=== PATIENT | female | born 1950 | race Caucasian/White ===

== ENCOUNTER 2016-08-15 09:26 | Emergency (ER) | payer MEDICARE ==
[~2016-08-15] VITALS: Ht 167.6 cm; Wt 83.0 kg
[~2016-08-15 09:26] MED LIST: ASPI-482 PO; EZET10TA3 PO; GLIM4TAB2 PO; LEVO112T2 PO; METF500T4 PO; OLME1TAB5 PO
[2016-08-15] MEDS ORDERED: IV NORMAL SALINE 500ML BAG 500 ML IV ONE (10:00)
[2016-08-15 10:15] LABS: BASO # 0.1 x10^3/uL (0.0-0.2); BASO % 1 % (0-3); EOS % 3 % (0-3); HEMOGLOBIN 14.4 g/dL (12.0-15.5); LYMPH # 2.5 x10^3/uL (1.0-4.8); LYMPH % 23 % (24-48); MEAN CORPUSCULAR HEMOGLOBIN 29 pg (25-35); MEAN CORPUSCULAR HGB CONC 34 g/dL (31-37); MEAN CORPUSCULAR VOLUME 88 fL (79-100); MONO % 5 % (0-9); NEUT % 68 % (31-73); PLATELET COUNT 264 x10^3/uL (140-400); RED BLOOD COUNT 4.92 x10^6/uL (3.50-5.40); RED CELL DISTRIBUTION WIDTH 14.4 % (11.5-14.5); WHITE BLOOD COUNT 10.6 x10^3/uL (4.0-11.0)
[2016-08-15] MEDS ORDERED: FENTANYL PF 100 MCG/2 ML VIAL. IV PRN (10:15)
[2016-08-15 10:18] LABS: CALCIUM 8.8 mg/dL (8.5-10.1); CREATININE 0.9 mg/dL (0.6-1.0); GFR 62.3; POTASSIUM 4.3 mmol/L (3.5-5.1)
[2016-08-15] MEDS ORDERED: IOHEXOL 300 MG/ML 75 ML VIAL IV ONE (10:30)
[2016-08-15] MEDS ORDERED: CONTRAST GIVEN MC PRN (10:30)
--- NOTE | 2016-08-15 11:28 | RAD ---
Indication submandibular pain. Swelling after tooth pulled. Contrast imaging through the neck was performed. 75 cc of Omnipaque 300 was administered. Images were reformatted in the coronal and sagittal planes. There is a lucency in the right lower mandible, at the expected level of an incisor tooth which would be compatible with an area of recent tooth extraction. Immediately adjacent, medial, to this finding is an additional lucency surrounding an incisor tooth compatible with a carious tooth (cavity). The visualized paranasal sinuses appear normal. The visualized brain appears unremarkable. Submandibular glands are seen and appear unremarkable. Evidence for a significant soft tissue inflammatory process is not seen. No underlying abscess is seen. Significant adenopathy in the neck is not seen. IMPRESSION: Lucency in the right mandible compatible with recent tooth extraction. Additional evidence for dental disease is seen. There is likely a carious tooth immediately adjacent to the extracted one. No significant soft tissue finding seen in the neck PQRS Compliance Statement: One or more of the following individualized dose reduction techniques were utilized for this examination: 1. Automated exposure control 2. Adjustment of the mA and/or kV according to patient size 3. Use of iterative reconstruction technique
[2016-08-15 11:53] VITALS: BP 173/88
[2016-08-15] MEDS ORDERED: PENI500T PO (11:53)
--- NOTE | 2016-08-15 11:54 | PHYS DOC ---
Past Medical History Past Medical History: Diabetes-Type II, Hypertension Past Surgical History: Appendectomy, Cholecystectomy, Hysterectomy Alcohol Use: Rarely Drug Use: None Adult General Chief Complaint Chief Complaint: OTHER COMPLAINTS HPI HPI Patient is a 66 year old female who presents with facial swelling. The patient states she had dental extraction on 07/24, now over past several days developing submandibular pain & swelling. She denies fevers/chills, nausea/ vomiting, difficulty swallowing, shortness of breath, tongue or lip swelling. Unsure if swelling/pain more severe than yesterday. No new dental complaints. She has not followed up with her dentist. She has history of DM & HTN. She takes losartan/HCTZ for HTN. PCP is DR. Kumar & her dentist is Dr. Benavides. Review of Systems Review of Systems Constitutional: Denies fever or chills HENT: Denies nasal congestion or sore throat, reports submandibular swelling. Respiratory: Denies cough or shortness of breath Cardiovascular: Denies chest pain GI: Denies abdominal pain, nausea, vomiting Musculoskeletal: Denies back pain or joint pain Integument: Denies rash Neurologic: Denies headache Current Medications Current Medications Current Medications Medications (Trade) Dose Ordered Sig/Bryson Start Time Stop Time Status Last Admin Dose Admin Fentanyl Citrate (Fentanyl 2ml Vial) 50 mcg PRN Q15MIN PRN 08/15/16 10:15 08/15/16 12:12 DC 08/15/16 10:19 50 MCG Info (Do NOT chart on this entry -- for MONITORING) 1 each PRN DAILY PRN 08/15/16 10:30 08/15/16 12:12 DC Iohexol (Omnipaque 300 Mg/ml) 75 ml 1X ONCE 08/15/16 10:30 08/15/16 10:31 DC 08/15/16 10:32 75 ML Sodium Chloride (Iv Sodium Chloride 0.9% 500ml Bag) 500 ml @ 0 mls/hr 1X ONCE 08/15/16 10:00 08/15/16 10:17 DC 08/15/16 10:16 999 MLS/HR Allergies Allergies Allergies Coded Allergies Type Severity Reaction Last Updated Verified No Known Drug Allergies 09/21/13 No Physical Exam Physical Exam Constitutional: Well developed, well nourished, no acute distress, non-toxic appearance. HENT: Normocephalic, atraumatic, bilateral external ears normal, oropharynx moist, nose normal. no tongue or lip swelling. there is slight swelling to submandibular region with associated mild tenderness, no masses or induration, no skin changes, beneath the tongue there is no swelling or tenderness, no dental abscess appreciated, recent extraction of right mandibular tooth, no trismus, posterior oropharynx no tonsillar enlargement or exudate, airway patent Eyes: conjunctiva normal, no discharge. Neck: supple, no stridor. Cardiovascular: RRR, no murmurs, no edema. Lungs & Thorax: LCTAB, no wheezing, no respiratory distress. Abdomen: nondistended. Skin: Warm, dry, no erythema, no rash. Extremities: No deformity Neurologic: Alert and oriented X 3 Current Patient Data Vital Signs Vital Signs Date Time Temp Pulse Resp B/P Pulse Ox O2 Delivery O2 Flow Rate FiO2 08/15/16 11:53 68 18 173/88 99 Room Air 08/15/16 09:40 98.0 98.0 Lab Values Laboratory Tests Test 08/15/16 09:55 White Blood Count 10.6x10^3/uL (4.0-11.0) Red Blood Count 4.92x10^6/uL (3.50-5.40) Hemoglobin 14.4g/dL (12.0-15.5) Hematocrit 43.0% (36.0-47.0) Mean Corpuscular Volume 88fL (79-100) Mean Corpuscular Hemoglobin 29pg (25-35) Mean Corpuscular Hemoglobin Concent 34g/dL (31-37) Red Cell Distribution Width 14.4% (11.5-14.5) Platelet Count 264x10^3/uL (140-400) Neutrophils (%) (Auto) 68% (31-73) Lymphocytes (%) (Auto) 23% (24-48) L Monocytes (%) (Auto) 5% (0-9) Eosinophils (%) (Auto) 3% (0-3) Basophils (%) (Auto) 1% (0-3) Neutrophils # (Auto) 7.3x10^3uL (1.8-7.7) Lymphocytes # (Auto) 2.5x10^3/uL (1.0-4.8) Monocytes # (Auto) 0.5x10^3/uL (0.0-1.1) Eosinophils # (Auto) 0.3x10^3/uL (0.0-0.7) Basophils # (Auto) 0.1x10^3/uL (0.0-0.2) Sodium Level 129mmol/L (136-145) L Potassium Level 4.3mmol/L (3.5-5.1) Chloride Level 93mmol/L (98-107) L Carbon Dioxide Level 28mmol/L (21-32) Anion Gap 8 (6-14) Blood Urea Nitrogen 7mg/dL (7-20) Creatinine 0.9mg/dL (0.6-1.0) Estimated GFR (Cockcroft-Gault) 62.3 Glucose Level 69mg/dL (70-99) L Calcium Level 8.8mg/dL (8.5-10.1) Laboratory Tests 08/15/16 09:55 Laboratory Tests 08/15/16 09:55 EKG EKG [] Radiology/Procedures Radiology/Procedures PROCEDURE: CT MAXILLOFACIAL W/CONTRAST Indication submandibular pain. Swelling after tooth pulled. Contrast imaging through the neck was performed. 75 cc of Omnipaque 300 was administered. Images were reformatted in the coronal and sagittal planes. There is a lucency in the right lower mandible, at the expected level of an incisor tooth which would be compatible with an area of recent tooth extraction. Immediately adjacent, medial, to this finding is an additional lucency surrounding an incisor tooth compatible with a carious tooth (cavity). The visualized paranasal sinuses appear normal. The visualized brain appears unremarkable. Submandibular glands are seen and appear unremarkable. Evidence for a significant soft tissue inflammatory process is not seen. No underlying abscess is seen. Significant adenopathy in the neck is not seen. IMPRESSION: Lucency in the right mandible compatible with recent tooth extraction. Additional evidence for dental disease is seen. There is likely a carious tooth immediately adjacent to the extracted one. No significant soft tissue finding seen in the neck PQRS Compliance Statement: One or more of the following individualized dose reduction techniques were utilized for this examination: 1. Automated exposure control 2. Adjustment of the mA and/or kV according to patient size 3. Use of iterative reconstruction technique DICTATED and SIGNED BY: DENISE GORDON MD DATE: 08/15/16 1113 [] Course & Med Decision Making Course & Med Decision Making Pertinent Labs and Imaging studies reviewed. (See chart for details) The patient presents with submandibular pain& swelling after recent dental extraction. She is well appearing, afebrile, conversational with no stridor or other airway compromise, managing secretions. Initially I was concerned for Chase's angina or other facial abscess. CT obtained which shows the recent extraction & possible caries of adjacent tooth, but no deep space infection. I also considered ARB related angioedema but the location of pain & insidious onset more consistent with infectious process. The patient was stable during her visit. I discussed the case with Dr. Clark avionics shop supervisor for oral surgery. He thought very likely early infectious process, recommends initiation of antibiotics & follow up in about 2-[address] Benavides or in [facility] clinic. Dr. Benavides refers to Dr. Clark so would be fine to go directly to [facility] clinic. I explained in detail to the patient the recommended plan, okay to see either doctor but very important to follow up with someone in several days even if improving on antibiotics. We briefly discussed the less likely possibility of medication reaction. Stressed importance of returning immediately if high fever , difficulty breathing or swallowing, progression of swelling, development of lip or tongue swelling, any otherwise worsening condition. Discharged home in stable condition. [] Dragon Disclaimer Dragon Disclaimer This electronic medical record was generated, in whole or in part, using a voice recognition dictation system. Departure Departure Impression: Primary Impression: Pain, dental Disposition: 01 HOME, SELF-CARE Condition: STABLE Referrals: MICAELA CLARK Jr DDS Patient Instructions: Dental Abscess Additional Instructions: You were seen in the emergency department today for oral pain. Your CT scan did not show a serious cause of symptoms but it is likely that you have an early infection. Please take the prescribed antibiotic & use pain medication as needed; no drinking alcohol or driving while taking this medication. Follow up with Dr. Benavides or with Dr. Clark in 2-3 days if possible. Come back immediately for face/tongue/lip swelling, quickly worsening swelling under your chin, difficulty breathing or swallowing, or any otherwise worsening condition. Scripts Hydrocodone/Apap 5-325 ([place] 5-325 Tablet)1 Each Tablet1 Tab PO PRN Q6HRS PRN PAIN #10 TAB Prov:GIOVANA CHO MD 08/15/16 Penicillin V Potassium 500 Mg [id number] Mg PO QID #28 TAB Ref 0 Prov:GIOVANA CHO MD 08/15/16 GIOVANA CHO MD Aug 15, 2016 11:53
[2016-08-15] MEDS ORDERED: HYDR-971 PO (11:55)
== END 2016-08-15 12:10 | disposition home or self-care (01) ==
LOC: ER 09:26
DX: K08.89 Other specified disorders of teeth and supporting structures (principal); M54.2 Cervicalgia; E11.9 Type 2 diabetes mellitus without complications; I10 Essential (primary) hypertension; Z79.899 Other long term (current) drug therapy
CPT/HCPCS: 36415; 70487; 80048; 85027; 96361; 96374; 99285; J3010; J7040; Q9967

== ENCOUNTER 2020-03-06 19:07 | Emergency (ER) | payer MEDICARE ==
[~2020-03-06] VITALS: Ht 167.6 cm; Wt 63.0 kg
[~2020-03-06 19:07] MED LIST changes: +EZET10TA20 PO; -EZET10TA3 PO; -GLIM4TAB2 PO; +GLIM4TAB8 PO; +HYDR-3164 PO; +METF500T16 PO; -METF500T4 PO; +OLME1TAB25 PO; -OLME1TAB5 PO; +PENI500T PO
--- NOTE | 2020-03-06 20:47 | PHYS DOC ---
Past Medical History Past Medical History: Diabetes-Type II, Hypertension Past Surgical History: Appendectomy, Cholecystectomy, Hysterectomy Smoking Status: Current Some Day Smoker Alcohol Use: Rarely Drug Use: None General Adult EDM: Chief Complaint: ABDOMINAL PAIN HPI: HPI: Patient is a 69 year old female who arrives with a chief complaint of abdominal pain. Patient has a history of abdominal wall hernia and she has been unable to reduce it today. Patient has had nausea but no vomiting or diarrhea. Patient denies any fever. Patient describes moderate pain located around the hernia site that is nonradiating worse with palpation. Review of Systems: Review of Systems: Constitutional: Denies fever or chills. [] Eyes: Denies change in visual acuity. [] HENT: Denies nasal congestion or sore throat. [] Respiratory: Denies cough or shortness of breath. [] Cardiovascular: Denies chest pain or edema. [] GI: Complains abdominal pain but no vomiting or diarrhea patient also has some nausea : Denies dysuria. [] Musculoskeletal: Denies back pain or joint pain. [] Integument: Denies rash. [] Neurologic: Denies headache, focal weakness or sensory changes. [] Endocrine: Denies polyuria or polydipsia. [] Lymphatic: Denies swollen glands. [] Psychiatric: Denies depression or anxiety. [] Heart Score: Risk Factors: Risk Factors: DM, Current or recent (<one month) smoker, HTN, HLP, family history of CAD, obesity. Risk Scores: Score 0 - 3: 2.5% MACE over next 6 weeks - Discharge Home Score 4 - 6: 20.3% MACE over next 6 weeks - Admit for Clinical Observation Score 7 - 10: 72.7% MACE over next 6 weeks - Early Invasive Strategies Current Medications: Current Medications Ondansetron HCl (Zofran) 4 mg 1X ONCE IVP Last administered on 03/06/20at 21:11; Start 03/06/20 at 21:00; Stop 03/06/20 at 21:01; Status DC Sodium Chloride 500 ml @ 500 mls/hr 1X ONCE IV Last administered on 03/06/20at 21:11; Start 03/06/20 at 21:00; Stop 03/06/20 at 21:59 Active Scripts Active [place] 5-325 Tablet (Acetaminophen/Hydrocodone Bitart) 1 Each Tablet 1 Tab PO PRN Q6HRS PRN Penicillin V Potassium 500 Mg Tablet 500 Mg PO QID Reported Aspir 81 (Aspirin) 81 Mg Tablet.dr 81 Mg PO Benicar Hct 40-25 Mg Tablet (Olmesartan/Hydrochlorothiazide) 1 Each Tablet 1 Each PO Synthroid (Levothyroxine Sodium) 112 Mcg Tablet 112 Mcg PO Zetia (Ezetimibe) 10 Mg Tablet 10 Mg PO Glimepiride 4 Mg Tablet 4 Mg PO Metformin Hcl 500 Mg Tablet 500 Mg PO Current Medications Medications (Trade) Dose Ordered Sig/Bryson Start Time Stop Time Status Last Admin Dose Admin Ondansetron HCl (Zofran) 4 mg 1X ONCE 03/06/20 20:45 03/06/20 20:46 UNV Sodium Chloride 500 ml @ 500 mls/hr 1X ONCE 03/06/20 20:45 03/06/20 21:44 UNV Allergies: Allergies: Allergies Coded Allergies Type Severity Reaction Last Updated Verified No Known Drug Allergies 09/21/13 No Physical Exam: PE: Constitutional: Well developed, well nourished, no acute distress, non-toxic appearance. [] HENT: Normocephalic, atraumatic, bilateral external ears normal, no trismus nose normal. [] Eyes: PERRLA, EOMI, conjunctiva normal, no discharge. [] Neck: Normal range of motion, no tenderness, supple, no stridor. [] Cardiovascular:Heart rate regular rhythm, peripheral pulses are intact, cap refill is brisk Lungs & Thorax: Bilateral breath sounds clear, no respiratory distress Abdomen: Abdomen is soft, there is a hernia in the right mid abdominal area that is tender. Skin: Warm, dry, no erythema, no rash. [] Back: No tenderness, no CVA tenderness. [] Extremities: No tenderness, no cyanosis, no clubbing, ROM intact, no edema. [] Neurologic: Alert and oriented X 3, normal motor function, normal sensory fu nction, no focal deficits noted. [] Psychologic: Affect normal, judgement normal, mood normal. [] Current Patient Data: Labs: Laboratory Tests Test 03/06/20 20:45 White Blood Count 9.3 x10^3/uL Red Blood Count 5.49 x10^6/uL Hemoglobin 16.2 g/dL Hematocrit 48.6 % Mean Corpuscular Volume 89 fL Mean Corpuscular Hemoglobin 29 pg Mean Corpuscular Hemoglobin Concent 33 g/dL Red Cell Distribution Width 16.5 % Platelet Count 205 x10^3/uL Neutrophils (%) (Auto) 72 % Lymphocytes (%) (Auto) 23 % Monocytes (%) (Auto) 3 % Eosinophils (%) (Auto) 0 % Basophils (%) (Auto) 1 % Neutrophils # (Auto) 6.8 x10^3/uL Lymphocytes # (Auto) 2.2 x10^3/uL Monocytes # (Auto) 0.3 x10^3/uL Eosinophils # (Auto) 0.0 x10^3/uL Basophils # (Auto) 0.1 x10^3/uL Sodium Level 133 mmol/L Potassium Level 3.7 mmol/L Chloride Level 95 mmol/L Carbon Dioxide Level 29 mmol/L Anion Gap 9 Blood Urea Nitrogen 17 mg/dL Creatinine 1.3 mg/dL Estimated GFR (Cockcroft-Gault) 40.4 BUN/Creatinine Ratio 13 Glucose Level 184 mg/dL Calcium Level 9.5 mg/dL Total Bilirubin 0.3 mg/dL Aspartate Amino Transf (AST/SGOT) 15 U/L Alanine Aminotransferase (ALT/SGPT) 10 U/L Alkaline Phosphatase 66 U/L Total Protein 7.8 g/dL Albumin 3.7 g/dL Albumin/Globulin Ratio 0.9 Lipase 68 U/L Current Medications Medications (Trade) Dose Ordered Sig/Bryson Route PRN Reason Start Time Stop Time Status Last Admin Dose Admin Ondansetron HCl (Zofran) 4 mg 1X ONCE IVP 03/06/20 21:00 03/06/20 21:01 DC 03/06/20 21:11 Sodium Chloride 500 ml @ 500 mls/hr 1X ONCE IV 03/06/20 21:00 03/06/20 21:59 03/06/20 21:11 Vital Signs: Vital Signs Date Time Temp Pulse Resp B/P (MAP) Pulse Ox O2 Delivery O2 Flow Rate FiO2 03/06/20 21:15 73 16 118/69 (85) 93 Room Air 03/06/20 20:45 76 16 146/72 (96) 96 Room Air EKG: EKG: [] Radiology/Procedures: Radiology/Procedures: [] Upon my initial assessment I was able to easily reduce her abdominal wall hernia. Course & Med Decision Making: Course & Med Decision Making Pertinent Labs and Imaging studies reviewed. (See chart for details) [] 69-year-old female presents with abdominal pain related to a ventral hernia. Patient had her hernia easily reduced by me with some constant steady pressure. Patient feels better after that. Patient's lab work was reassuring and feels better on reassessment at 9:35 PM. Patient stable for discharge and follow-up with a surgeon. Bella Disclaimer: Bella Disclaimer: This electronic medical record was generated, in whole or in part, using a voice recognition dictation system. Departure Departure Impression: Primary Impression: Abdominal wall hernia Additional Impression: Abdominal pain Condition: STABLE Referrals: NO PCP (PCP) CECIL MONGE MD 2-3 DAYS Patient Instructions: Hernia Additional Instructions: EMERGENCY DEPARTMENT GENERAL DISCHARGE INSTRUCTIONS THANK YOU for coming to Emergency Department (ED) today and trusting us with your care. We trust that you had a positive experience in our Emergency Department. If you wish to speak to the department Management you can contact the supervisor delivery department at . YOUR FOLLOW UP INSTRUCTIONS ARE FOLLOWS: Do you have a private doctor? If you do not have a private doctor, please ask for a resource list of physicians or clinics that may be able to assist you with follow up care. The Emergency Physician has interpreted your x-rays. The X-ray specialist will also review them. If there is a change in the findings you will be notified in 48 hours when at all possible. A lab test or lab culture may have been done, your results will be reviewed and you will be notified if you need a change in treatment. ADDITIONAL INSTRUCTIONS AND INFORMATION Your care today has been supervised by a physician who is specially trained in emergency care. Many problems require more than one evaluation for a complete diagnosis and treatment. We recommend that you schedule your follow up appointment as recommended to ensure complete treatment of your illness or injury. If you are unable to obtain follow up care and continue to have a problem, or if your condition worsens we recommend that you return to the ED. We are not able to safely determine your condition over the phone nor are we able to give sound medical advice over the phone. For these safety reasons, if you call for medical advice we will ask you to come to the ED for further evaluation If you have any questions regarding these discharge instructions please call the ED at . SAFETY INFORMATION In the interest of safety, wellness, and injury prevention; we encourage you to wear your seatbelt, if you smoke; quit smoking, and we encourage your family to use protective helmet for bicycling and other sporting events that present an increased risk for head injury. IF YOUR SYMPTOMS WORSEN OR NEW SYMPTOMS DEVELOP, OR YOU HAVE CONCERNS ABOUT YOUR CONDITION; OR IF YOUR CONDITION WORSENS WHILE YOU ARE WAITING FOR YOUR FOLLOW UP APPOINTMENT; EITHER CONTACT YOUR PRIMARY CARE DOCTOR, THE PHYSICIAN WHOSE NAME AND NUMBER YOU WERE GIVEN, OR RETURN TO THE ED IMMEDIATELY. Scripts Ondansetron Hcl (ZOFRAN) 4 Mg Tablet 1 TAB PO Q6HRS for NAUSEA, #20 TAB Prov: ALESSIA WAY MD 03/06/[address] MD Mar 06, 2020 20:47
[2020-03-06 20:56] LABS: BASO # 0.1 x10^3/uL (0.0-0.2); BASO % 1 % (0-3); EOS % 0 % (0-3); HEMATOCRIT 48.6 % (36.0-47.0); HEMOGLOBIN 16.2 g/dL (12.0-15.5); LYMPH # 2.2 x10^3/uL (1.0-4.8); LYMPH % 23 % (24-48); MEAN CORPUSCULAR HEMOGLOBIN 29 pg (25-35); MEAN CORPUSCULAR HGB CONC 33 g/dL (31-37); MEAN CORPUSCULAR VOLUME 89 fL (79-100); MONO # 0.3 x10^3/uL (0.0-1.1); MONO % 3 % (0-9); NEUT # 6.8 x10^3/uL (1.8-7.7); NEUT % 72 % (31-73); PLATELET COUNT 205 x10^3/uL (140-400); RED BLOOD COUNT 5.49 x10^6/uL (3.50-5.40); RED CELL DISTRIBUTION WIDTH 16.5 % (11.5-14.5); WHITE BLOOD COUNT 9.3 x10^3/uL (4.0-11.0)
[2020-03-06] MEDS ORDERED: IV NORMAL SALINE 500ML BAG 500 ML IV ONE (21:00)
[2020-03-06] MEDS ORDERED: ONDANSETRON PF 4 MG/2 ML VIAL. IVP ONE (21:00)
[2020-03-06 21:01] LABS: CALCIUM 9.5 mg/dL (8.5-10.1); CREATININE 1.3 mg/dL (0.6-1.0); GFR 40.4; POTASSIUM 3.7 mmol/L (3.5-5.1)
[2020-03-06 21:07] LABS: ALBUMIN 3.7 g/dL (3.4-5.0); ALBUMIN/GLOBULIN RATIO 0.9 (1.0-1.7); TOTAL BILIRUBIN 0.3 mg/dL (0.2-1.0); TOTAL PROTEIN 7.8 g/dL (6.4-8.2)
[2020-03-06 21:15] VITALS: BP 118/69
[2020-03-06] MEDS ORDERED: ONDA4TAB7 PO (21:38)
== END 2020-03-06 22:00 | disposition home or self-care (01) ==
LOC: ER 19:07
DX: K43.9 Ventral hernia without obstruction or gangrene (principal); R10.31 Right lower quadrant pain; R11.0 Nausea; E11.9 Type 2 diabetes mellitus without complications; I10 Essential (primary) hypertension; Z90.49 Acquired absence of other specified parts of digestive tract; Z90.89 Acquired absence of other organs; Z90.710 Acquired absence of both cervix and uterus; Z87.891 Personal history of nicotine dependence
CPT/HCPCS: 36415; 80053; 83690; 85025; 96361; 96374; 99283; J2405; J7040

== ENCOUNTER → 2020-07-30 | Outpatient (CLI) | payer MEDICARE ==
[~2020-07-30] MED LIST changes: +ONDA4TAB7 PO
--- NOTE | 2020-07-31 08:35 | RAD ---
CT of the chest without contrast: Clinical History: Reason: LUNG NODULE / Spl. Instructions: / History: . Axial helical images of the chest were obtained without contrast. Findings: There is diffuse emphysematous changes throughout the lungs. There is some pleural bleb formation thr oughout. There is a calcified granuloma in the left lung apex. There is no mediastinal or hilar lymphadenopathy. There is coronary artery calcifications. Impression: 1. Hyperinflation and diffuse emphysematous changes. 2. Calcified granuloma in the left lung apex. 2. No acute findings. End impression PQRS Compliance Statement: One or more of the following individualized dose reduction techniques were utilized for this examinat ion: 1. Automated exposure control 2. Adjustment of the mA and/or kV according to patient size 3. Use of iterative reconstruction technique Electronically signed by: Bruno Jackson III, MD (07/31/2020 8:33 AM) [facility]
== END ==
LOC: CT 13:58
PROVIDERS: ATTEND Internal Medicine Pulmonary Disease
DX: J43.9 Emphysema, unspecified (principal); R91.1 Solitary pulmonary nodule
CPT/HCPCS: 71250

== ENCOUNTER → 2021-08-01 | Outpatient (CLI) | payer MEDICARE ==
--- NOTE | 2021-08-01 17:39 | RAD ---
Exam Date: 08/01/2021 3:[address] LOW DOSE LUNG SCREEN Indication: Reason: lung cancer screening / Spl. Instructions: / History: . TECHNIQUE: Low-dose CT scan of the chest was performed without intravenous contrast. One or more of the following dose reduction techniques were utilized: *Automated exposure control (AEC) *Adjustment of mA and/or kV according to patient size *Use of iterative reconstruction technique *CT scan done according to ALARA, or ALARA/IMAGE GENTLY FINDINGS: The central airways are patent. There is no focal consolidation, pleural effusion or pneumothorax. Moderate emphysematous changes are noted. Calcified granulomas are seen in the lungs. The visualized thyroid gland is within normal limits. No lymphadenopathy is seen. Aorta is normal in caliber with atherosclerotic calcifications. The heart is normal in size without pericardial effusion. Coronary artery calcifications are present . Images of the upper abdomen demonstrate a small hiatal hernia. Cholecystectomy clips are noted. Deg enerative changes are seen in the spine. IMPRESSION: No suspicious lung nodules identified. Moderate emphysematous changes noted. LUNG RADS: Category 1: Negative. Follow up: Continue annual screening with LDCT in 12 months. Electronically signed by: Herbie Quezada MD (08/01/2021 5:37 PM) [facility]
== END ==
LOC: CT 14:54
PROVIDERS: ATTEND Internal Medicine Pulmonary Disease
DX: Z12.2 Encounter for screening for malignant neoplasm of respiratory organs (principal); J43.9 Emphysema, unspecified; J84.10 Pulmonary fibrosis, unspecified; I25.10 Atherosclerotic heart disease of native coronary artery without angina pectoris; F17.210 Nicotine dependence, cigarettes, uncomplicated; M47.819 Spondylosis without myelopathy or radiculopathy, site unspecified; Z90.49 Acquired absence of other specified parts of digestive tract
CPT/HCPCS: 71271